=== PATIENT | female | born 1955 | race Caucasian/White ===

== ENCOUNTER 2022-03-27 10:30 | Inpatient (IN) ==
[2022-04-08] MEDS ORDERED: Buffered Lidocaine 1% SYRIN 1 ml INTRADERM ONE (06:00)
[2022-04-08] MEDS ORDERED: Lactated Ringers 1000 ml BAG 1,000 ML IV SCH (06:00)
[2022-04-08] MEDS ORDERED: ceFAZolin 2 GM PREMIX 2 GM/50 ML BAG ONE (12:29)
[2022-04-08] MEDS ORDERED: Midazolam 2 mg/2 ml VIAL 1 mg/ml 2 ml VIAL (2 mg) ONE (14:36)
[2022-04-08] MEDS ORDERED: Lidocaine 2% PF 5 ML VIAL ONE (14:36)
[2022-04-08] MEDS ORDERED: Propofol 10 MG/ML 20 ML BTL ONE ×3 (14:36→16:23)
[2022-04-08] MEDS ORDERED: fentaNYL 100 mcg/2 ml 50 MCG/ML VIAL ONE (14:36)
[2022-04-08] MEDS ORDERED: Ondansetron ODT 4 mg TAB 4 MG TAB PO PRN (16:16)
[2022-04-08] MEDS ORDERED: Lactulose 30 ml UDC PO PRN (16:16)
[2022-04-08] MEDS ORDERED: Phenylephrine IV 10 MG/ML 1 ml VIAL ONE (16:23)
[2022-04-08] MEDS ORDERED: Acetaminophen IV 1 GM/100ML 1,000 MG/100 ML BAG IV ONE (16:27)
[2022-04-08] MEDS ORDERED: Ondansetron 4 mg VIAL 2 MG/ML 2 ml VIAL IV PRN (16:34)
[2022-04-08] MEDS ORDERED: Naloxone 0.4 mg VIAL 0.4 mg/ml 1 ml VIAL IV PRN (16:34)
[2022-04-08] MEDS ORDERED: fentaNYL 100 mcg/2 ml 50 MCG/ML VIAL IV PRN (16:34)
[2022-04-08] MEDS: Morphine 2 MG/ML SYRINGE IV PRN (20:27)
[2022-04-08] MEDS: Ondansetron 4 mg VIAL 2 MG/ML 2 ml VIAL IV PRN (20:28)
[2022-04-08] MEDS: Lactated Ringers 1000 ml BAG 1,000 ML IV SCH (20:33)
[2022-04-08 20:46] LABS: ABS Basophils 0.1 10^3/ul (0-0.2); ABS Eosinophils 0.2 10^3/ul (0-0.6); ABS Lymphocytes 2.1 10^3/ul (1.0-4.8); ABS Monocytes 0.9 10^3/ul (0-0.8); ABS Neutrophils 12.9 10^3/ul (1.5-7.7); Hematocrit 40 % (35-47); Hemoglobin 13.4 g/dL (12.0-16.0); Lymphocyte % 12.9 %; Mean Corpuscular HGB Conc 34 g/dL (31-36); Mean Corpuscular Hemoglobin 33 pg (27-31); Mean Corpuscular Volume 97 fL (80-97); Mean Platelet Volume 8.2 fL (7.4-10.4); Platelet Count 276 10^3/uL (150-450); Red Blood Count 4.11 10^6 /uL (3.70-4.87); Red Cell Distribution Width 13 % (10-15); White Blood Count 16.1 10^3/uL (3.5-10.8)
[2022-04-08] MEDS: Magnesium Hydroxide LIQ 30 ML UDC PO SCH (21:00)
[2022-04-08 21:05] LABS: Calcium 9.1 mg/dL (8.6-10.3); Creatinine, Serum 0.67 mg/dL (0.51-0.95); Magnesium 1.7 mg/dL (1.9-2.7); Potassium 3.8 mmol/L (3.5-5.0); eGFR CKD-EPI 96.9 (>60)
[2022-04-08] MEDS: ceFAZolin 1 GM ADVAN 1 GM in NS 0.9% 50 ML 50 ML IVPB SCH (23:43)
[2022-04-09] MEDS: Morphine 2 MG/ML SYRINGE IV PRN (05:38)
[2022-04-09 06:17] LABS: Hematocrit 37 % (35-47); Hemoglobin 12.6 g/dL (12.0-16.0); Mean Platelet Volume 8.5 fL (7.4-10.4); Platelet Count 222 10^3/uL (150-450)
[2022-04-09 06:32] LABS: Calcium 9.1 mg/dL (8.6-10.3); Creatinine, Serum 0.67 mg/dL (0.51-0.95); Potassium 4.1 mmol/L (3.5-5.0); eGFR CKD-EPI 96.9 (>60)
[2022-04-09] MEDS: Lactated Ringers 1000 ml BAG 1,000 ML IV SCH ×2 (07:03→17:17)
[2022-04-09] MEDS: ceFAZolin 1 GM ADVAN 1 GM in NS 0.9% 50 ML 50 ML IVPB SCH ×2 (07:51→15:14)
[2022-04-09] MEDS: Vitamin THERAPEUTIC TAB PO SCH (07:53)
[2022-04-09] MEDS: Magnesium Hydroxide LIQ 30 ML UDC PO SCH ×2 (07:54→21:06)
[2022-04-09 07:55] LABS: Magnesium 1.9 mg/dL (1.9-2.7)
[2022-04-09] MEDS ORDERED: Nicotine GUM 2MG FRUIT FLAVOR PO PRN (16:10)
[2022-04-09] MEDS: Nicotine PATCH 14 MG/24 HR PATCH TRANSDERM SCH (17:16)
[2022-04-10 05:53] LABS: Hematocrit 31 % (35-47); Hemoglobin 10.7 g/dL (12.0-16.0); Mean Platelet Volume 8.3 fL (7.4-10.4); Platelet Count 214 10^3/uL (150-450)
[2022-04-10] MEDS: Nicotine PATCH 14 MG/24 HR PATCH TRANSDERM SCH (08:24)
[2022-04-10] MEDS: Magnesium Hydroxide LIQ 30 ML UDC PO SCH ×2 (08:25→22:23)
[2022-04-10] MEDS: Vitamin THERAPEUTIC TAB PO SCH (08:25)
[2022-04-10] MEDS ORDERED: NS 0.9% 500 ml BAG 500 ML IV SCH (10:00)
[2022-04-10 18:37] LABS: Folate 6.19 ng/mL (5.90-24.80)
[2022-04-10] MEDS: Ondansetron 4 mg VIAL 2 MG/ML 2 ml VIAL IV PRN (19:58)
[2022-04-11 06:12] LABS: Hematocrit 28 % (35-47); Hemoglobin 9.6 g/dL (12.0-16.0); Mean Platelet Volume 8.2 fL (7.4-10.4); Platelet Count 185 10^3/uL (150-450)
[2022-04-11] MEDS: Nicotine PATCH 14 MG/24 HR PATCH TRANSDERM SCH (09:06)
[2022-04-11] MEDS: Vitamin THERAPEUTIC TAB PO SCH (09:15)
[2022-04-11 10:41] LABS: Rapid COVID-19 Molecular Undetected (Undetected)
[2022-04-11] MEDS: Magnesium Hydroxide LIQ 30 ML UDC PO SCH (12:50)
[2022-04-11 14:42] LABS: White Blood Count 7.7 10^3/uL (3.5-10.8)
[2022-04-11] MEDS: Magnesium Hydroxide LIQ 30 ML UDC PO PRN (22:32)
[2022-04-12 05:44] LABS: Hematocrit 28 % (35-47); Hemoglobin 9.8 g/dL (12.0-16.0); Mean Platelet Volume 8.3 fL (7.4-10.4); Platelet Count 200 10^3/uL (150-450)
[2022-04-12] MEDS: Nicotine PATCH 14 MG/24 HR PATCH TRANSDERM SCH (08:40)
[2022-04-12] MEDS: Magnesium Hydroxide LIQ 30 ML UDC PO PRN (08:43)
[2022-04-12] MEDS: Vitamin THERAPEUTIC TAB PO SCH (08:43)
[2022-04-12] MEDS ORDERED: Polyethylene Glycol 3350 17 GM PACKET PO PRN (08:50)
[2022-04-12] MEDS ORDERED: Senna TAB 8.6 mg TAB PO PRN (08:51)
[2022-04-13 06:09] LABS: Hematocrit 31 % (35-47); Hemoglobin 10.3 g/dL (12.0-16.0); Platelet Count 264 10^3/uL (150-450)
[2022-04-13] MEDS ORDERED: Lactated Ringers 1000 ml BAG 500 ML IV ONE ×2 (09:16→16:17)
[2022-04-13] MEDS: Vitamin THERAPEUTIC TAB PO SCH (11:36)
[2022-04-13] MEDS: Nicotine PATCH 14 MG/24 HR PATCH TRANSDERM SCH (11:37)
[2022-04-13] MEDS ORDERED: NS 0.9% 1000 ml BAG 1,000 ML IV ONE (16:29)
[2022-04-14 07:46] VITALS: BP 124/69
[2022-04-14] MEDS: Vitamin THERAPEUTIC TAB PO SCH (08:01)
[2022-04-14] MEDS: Nicotine PATCH 14 MG/24 HR PATCH TRANSDERM SCH (08:02)
[2022-04-14 08:12] LABS: Rapid COVID-19 Molecular Undetected (Undetected)
== END 2022-04-14 11:03 | DRG 470 ==
LOC: AA 04-08 11:40 → OBSVTOIN 04-08 11:40 → INTOOBSV 04-08 11:40 → SSU 04-08 19:25
PROVIDERS: ADMIT Orthopaedic Surgery Adult Reconstructive Orthopaedic Surgery; ATTEND Orthopaedic Surgery Adult Reconstructive Orthopaedic Surgery

== ENCOUNTER 2024-02-13 09:33 | Observation (INO) ==
[2024-02-13] MEDS ORDERED: Dextrose 50% Syringe 50 ml 25 GM/50 ML SYRINGE ONE (10:07)
[2024-02-13 10:10] LABS: ABS Basophils 0.1 10^3/uL (0.0-0.1); ABS Eosinophils 0.3 10^3/uL (0.0-0.5); ABS Lymphocytes 1.8 10^3/uL (1.0-4.8); ABS Monocytes 0.8 10^3/uL (0.0-0.9); ABS Neutrophils 8.5 10^3/uL (1.5-7.6); ABS Nucleated RBC 0.01 10^3/ul; Eosinophil % 2.5 %; Hemoglobin 13.2 g/dL (11.5-14.3); Lymphocyte % 15.5 %; Mean Corpuscular Hemoglobin 31.5 pg (27-33); Mean Corpuscular Hgb Conc 32.9 g/dL (31-36); Mean Corpuscular Volume 95.6 fL (80-97); Mean Platelet Volume 8.6 fL (7.5-11.2); Nucleated Red Blood Cells % 0.1 %/100WBC (0.0-0.8); Platelet Count 380 10^3/uL (150-450); Red Blood Count 4.19 10^6/uL (3.63-4.92); Red Cell Distribution Width 14.1 % (12-17); White Blood Count 11.5 10^3/uL (3.8-11.8)
[2024-02-13 10:20] LABS: Activated Partial Thrombo Time 34.5 seconds (26.0-38.0); INR 1.01 (0.85-1.14)
[2024-02-13] MEDS: Ondansetron 4 mg VIAL 2 MG/ML 2 ml VIAL IV ONE (10:20)
[2024-02-13] MEDS ORDERED: Iodixanol 320 (CONTRAST) 100 ML SDV IV ONE (10:20)
[2024-02-13] MEDS: Iodixanol 320 (CONTRAST) 100 ML SDV IV ONE (10:21)
[2024-02-13] MEDS: Dextrose 50% VIAL 50 ml IV PRN (10:23)
[2024-02-13] MEDS: Lactated Ringers 1000 ml BAG 1,000 ML IV ONE (10:26)
[2024-02-13 10:29] LABS: Albumin 4.8 g/dL (3.2-5.2); Creatinine, Serum 1.09 mg/dL (0.51-0.95); Direct Bilirubin 0.1 mg/dL (0.03-0.18); Globulin 2.4 g/dL (2-4); HDL Cholesterol 52.1 mg/dL; Indirect Bilirubin 0.3 mg/dL (0.3-1.0); Potassium 3.8 mmol/L (3.5-5.0); Total Bilirubin 0.4 mg/dL (0.2-1.0); Total Protein 7.2 g/dL (6.4-8.9); eGFR CKD-EPI 55.7 (>60)
[2024-02-13 11:47] LABS: Urine Appearance Clear; Urine Bacteria 1+ /HPF (Absent); Urine Bilirubin Negative (Negative); Urine Blood 3+ (Negative); Urine Color Light-Yellow; Urine Glucose 3+ (>=300 mg/dL) (Negative); Urine Ketones Negative (Negative); Urine Nitrite 1+ (Negative); Urine Protein Trace (Negative); Urine Red Blood Cell 3+(>10/hpf) /HPF (0-Trace); Urine Specific Gravity >1.050 (1.002-1.030); Urine Squamous Epithelial Cell Present /HPF (Absent); Urine Urobilinogen Negative (Negative); Urine White Blood Cell 3+(>20/hpf) /HPF (0-Trace)
[2024-02-13] MEDS ORDERED: Lorazepam PYXIS KEY PRN (13:02)
[2024-02-13 14:11] LABS: Phosphorus 2.7 mg/dL (2.5-5.0)
[2024-02-13 15:02] LABS: C Reactive Protein 4.21 mg/L (<8.01)
[2024-02-13 15:15] LABS: Urine Appearance Clear; Urine Bilirubin Negative (Negative); Urine Blood Negative (Negative); Urine Color Yellow; Urine Glucose Negative (Negative); Urine Ketones Negative (Negative); Urine Nitrite Negative (Negative); Urine Protein 1+ (>=30 mg/dL) (Negative); Urine Specific Gravity >1.050 (1.002-1.030); Urine Urobilinogen Negative (Negative)
[2024-02-13 15:20] LABS: Urine Bacteria Absent /HPF (Absent); Urine Red Blood Cell 2+(6-10/hpf) /HPF (0-Trace); Urine Squamous Epithelial Cell Present /HPF (Absent); Urine White Blood Cell 3+(>20/hpf) /HPF (0-Trace)
[2024-02-13] MEDS: LORazepam 2 mg VIAL 1 ml IV PUSH ONE (18:18)
[2024-02-13] MEDS: Lactated Ringers 1000 ml BAG 1,000 ML IV SCH (20:04)
[2024-02-14 06:03] LABS: ABS Basophils 0.1 10^3/uL (0.0-0.1); ABS Eosinophils 0.3 10^3/uL (0.0-0.5); ABS Lymphocytes 2.3 10^3/uL (1.0-4.8); ABS Monocytes 0.7 10^3/uL (0.0-0.9); ABS Neutrophils 3.2 10^3/uL (1.5-7.6); Eosinophil % 4.9 %; Hematocrit 33.6 % (35-45); Hemoglobin 11.6 g/dL (11.5-14.3); Mean Corpuscular Hemoglobin 32.8 pg (27-33); Mean Corpuscular Hgb Conc 34.5 g/dL (31-36); Mean Corpuscular Volume 95.1 fL (80-97); Mean Platelet Volume 8.4 fL (7.5-11.2); Platelet Count 275 10^3/uL (150-450); Red Blood Count 3.53 10^6/uL (3.63-4.92); Red Cell Distribution Width 14.1 % (12-17); White Blood Count 6.7 10^3/uL (3.8-11.8)
[2024-02-14 06:33] LABS: Albumin 3.8 g/dL (3.2-5.2); Albumin/Globulin Ratio 2.2 (1-3); C Reactive Protein 3.97 mg/L (<8.01); Calcium 9.1 mg/dL (8.6-10.3); Creatinine, Serum 0.95 mg/dL (0.51-0.95); Globulin 1.7 g/dL (2-4); Total Bilirubin 0.3 mg/dL (0.2-1.0); Total Protein 5.5 g/dL (6.4-8.9); eGFR CKD-EPI 65.7 (>60)
[2024-02-14 08:49] LABS: Erythrocyte Sed Rate 11 mm/Hr (0-29)
[2024-02-14] MEDS: cefTRIAXone 1 gm/50 mL D5W 1 GM/50 ML BAG IV SCH (17:11)
[2024-02-15] MEDS ORDERED: Lorazepam PYXIS KEY PRN (07:30)
[2024-02-15] MEDS ORDERED: LORazepam 2 mg VIAL 1 ml IV PUSH ONE (07:30)
[2024-02-15] MEDS: Aspirin EC 81 mg TAB.EC (enteric coated) PO SCH (08:26)
[2024-02-15 17:59] VITALS: BP 119/95
== END 2024-02-15 18:00 | disposition home or self-care (01) ==
LOC: EDHOLD 09:33 → ED 09:33 → MEDTELE 16:43
PROVIDERS: ADMIT Hospitalist; ATTEND Hospitalist